=== PATIENT | male | born 1945 | race Caucasian/White ===

== ENCOUNTER → 2017-08-26 | Outpatient (CLI) | payer OTHER ==
[~2017-08-26] MED LIST: IOPAMIDOL (ISOVUE 370) 100 ML BTL IV ONE
== END ==
LOC: FIMAGING 12:15
PROVIDERS: ATTEND Family Medicine
DX: J90 Pleural effusion, not elsewhere classified (principal); J98.11 Atelectasis; R53.1 Weakness; R91.8 Other nonspecific abnormal finding of lung field; I25.10 Atherosclerotic heart disease of native coronary artery without angina pectoris
CPT/HCPCS: 71020; 71275; Q9967

== ENCOUNTER 2018-07-08 05:30 | Observation (INO) | payer OTHER ==
[2018-07-08] MEDS ORDERED: LR 1,000 ML IV ONE (06:07)
[2018-07-08] MEDS ORDERED: PIPERACILLIN/TAZO 3.375 GM/DEX 50 ML IV ONE (06:07)
--- NOTE | 2018-07-08 07:00 | PDANEPAE ---
ANE History of Present Illness persistent uti ANE Past Medical History - Cardiovascular History Hx Hypertension: No Hx Arrhythmias: No Hx Chest Pain: No Hx Coronary Artery / Peripheral Vascular Disease: No Hx CHF / Valvular Disease: No Hx Palpitations: No - Pulmonary History Hx COPD: No Hx Asthma/Reactive Airway Disease: No Hx Recent Upper Respiratory Infection: No Hx Oxygen in Use at Home: No Hx Sleep Apnea: No Sleep Apnea Screening Result - Last Documented: Negative - Neurologic History Hx Cerebrovascular Accident: No Hx Seizures: No Hx Dementia: No - Endocrine History Hx Diabetes: No Hypothyroid: No Hyperthyroid: No - Renal History Hx Renal Disorders: Yes Renal History Comment: persistant UTI - on Macrobid currently. enlarged prostate - Liver History Hx Hepatic Disorders: No - Neurological & Psychiatric Hx Hx Neurological and Psychiatric Disorders: No - Cancer History Hx Cancer: No - Congenital Disorder History Hx Congenital Disorders: No - GI History Hx Gastrointestinal Disorders: No - Other Health History Other Health History: wears glasses - Chronic Pain History Chronic Pain: No - Surgical History Prior Surgeries: tibial plateau fx repair, left - 08/2016. ankle fx, left - 20 years ago. hernia repair - 25 years ago ANE Review of Systems Review of systems is: negative Review of Systems: - Exercise capacity Exercise capacity: >=4 METS METS (RN): 6 METS ANE Patient History - Allergies Allergies/Adverse Reactions: No Known Allergies Allergy (Verified 06/16/18 10:21) - Home Medications Home Medications: RX: Aspirin [Aspirin 81mg (*)] 81 mg PO DAILY 05/04/15 [Last Taken 1 Week Ago ~ 07/01/18] RX: Allopurinol [Allopurinol 100 MG (*)] 200 mg PO DAILY 07/14/16 [Last Taken 04:19] RX: Ergocalciferol (Vitamin D2) [Vitamin D2] 2,000 unit PO DAILY 09/21/16 [Last Taken 07/07/18] RX: Multivitamins [Multivitamin (*)] 1 each PO DAILY 09/21/16 [Last Taken ] Atorvastatin Calcium [Lipitor 20 mg (*)] 20 mg PO DAILY 06/16/18 [Last Taken 04:19] Calcium Carbonate [Oyster Shell Calcium 500 mg (*)] 500 mg PO DAILY 06/16/18 [ Last Taken 07/07/18] Haswell-3 Fatty Acids [Fish Oil 1000 mg (*)] 2,000 mg PO DAILY 06/16/18 [Last Taken 07/07/18] - NPO status NPO Status: no food or drink >8 hours NPO Since - Liquids (Date): 07/07/18 NPO Since - Liquids (Time): 21:30 NPO Since - Solids (Date): 07/07/18 NPO Since - Solids (Time): 18:00 - Anes Hx Anes Hx: no prior problems - Smoking Hx Smoking Status: Never smoked - Alcohol Use Alcohol Use: Occasionally (6/wk) - Family Anes Hx Family Anes Hx: none Family Hx Anesthesia Complications: none ANE Labs/Vital Signs - Vital Signs Vital Signs: reviewed preoperatively; see RN documention for details Blood Pressure: 156/89 Heart Rate: 75 Respiratory Rate: 18 O2 Sat (%): 94 Height: 182.88 cm Weight: 86.183 kg ANE Physical Exam - Airway Neck exam: FROM Mallampati Score: Class 2 - Pulmonary Pulmonary: no respiratory distress - Cardiovascular Cardiovascular: regular rate and rhythym - ASA Status ASA Status: II ANE Anesthesia Plan Anesthesia Plan: GA w LMA
[2018-07-08] MEDS ORDERED: LIDOCAINE 2% JELLY 20 ML (UROJECT) ONE (07:09)
--- NOTE | 2018-07-08 07:18 | PDHPUP ---
History & Physical Update H&P update statement: This history and physical update is based on an assessment of the patient which was completed after admission or registration (within 24 hours), but prior to the surgery/procedure. H&P update: no change in patient's condition since H&P completed
[2018-07-08] MEDS ORDERED: BUPIVACAINE/DEXTROSE 7.5MG/ML 2 ML SPINAL AMP SP ONE (07:19)
--- NOTE | 2018-07-08 07:36 | POSTOPPROG ---
Post Op Note Date of Operation: 07/09/18 Surgeon: Patria Sen (# [id number]) Anesthesia: Spinal Pre-op Diagnosis: Chronic prostatitis & BPH Post-op Diagnosis: Chronic prostatitis & BPH Procedure: TURP Findings: BPH Inf/Abcess present in the surg proc area at time of surgery?: No EBL: 50-100 (50 cc) Specimen(s): Prostate tissue
[2018-07-08] MEDS ORDERED: HYDROCODONE/APAP 5/325 TAB PO PRN (09:22)
[2018-07-08] MEDS ORDERED: LIDOCAINE 2% JELLY 5 ML TUBE TP PRN (09:22)
[2018-07-08] MEDS ORDERED: ONDANSETRON 4 MG/2 ML VIAL IVP PRN (09:22)
[2018-07-08] MEDS ORDERED: PROMETHAZINE HCL 25 MG/ML INJ IVP PRN (09:22)
[2018-07-08] MEDS ORDERED: ALBUTEROL 3 ML DEYVIAL IH PRN (09:28)
[2018-07-08] MEDS ORDERED: fentaNYL 100 MCG/2 ML INJ IVP PRN (09:28)
[2018-07-08] MEDS ORDERED: NALOXONE HCL 0.4 MG/ML INJ IVP PRN (09:28)
--- NOTE | 2018-07-08 09:28 | POSTANESTH ---
Post Anesthetic Evaluation Cardiovascular Status: Normal, Stable Respiratory Status: Normal, Stable Level of Consciousness/Mental Status: Can Participate in Eval Pain Control: Adequate, Prn Tx Ordered Nausea/Vomiting Control: Adequate, Prn Tx Ordered Complications Possibly Related to Anesthesia: None Noted
[2018-07-08] MEDS ORDERED: D5W 1/2 NS 1,000 ML IV SCH (09:30)
--- NOTE | 2018-07-08 16:01 | ASMTCMCOM ---
CM Note CM Note Notes: Chart reviewed. 73 year old male with diagnosis of chronic prostatitis BPH and urinary obstructions s/p TURP. CM to follow for needs. Plan: TBD Date Signed: 07/08/2018 03:57 PM Electronically Signed By:Bonnie Rivera RN
[2018-07-09] MEDS ORDERED: ALLOPURINOL 100 MG TAB PO SCH (09:00)
[2018-07-09] MEDS ORDERED: PHENAZOPYRIDINE HCL 200 MG TAB PO SCH (09:00)
[2018-07-09] MEDS ORDERED: ATORVASTATIN CALCIUM 20 MG TAB PO SCH (09:00)
--- NOTE | 2018-07-09 09:11 | SOAPPROG ---
SOAP Progress Note Assessment/Plan: Assessment: POD 1 s/p TURP - stable Plan: Discharge later today after voiding trial. Subjective: No complaints. Objective: Vital Signs Temp Pulse Resp BP Pulse Ox 36.7 C 76 16 117/71 94 07/09/18 07:40 07/09/18 07:40 07/09/18 07:40 07/09/18 07:40 07/09/18 07:40 07/08/18 07/09/18 07/10/18 05:59 05:59 05:59 Intake Total 1800 620 Output Total 2535 Balance -735 620 Physical Exam - Physical Exam General Appearance: WD/WN, alert, no apparent distress Male Genitalia: other (urine pink-tinged without clots off CBI) Extremities: normal inspection Neuro/Psych: alert, normal mood/affect, oriented x 3 ICD10 Worksheet Patient Problems: Problems Problem Status Onset Cellulitis Acute Extended spectrum beta lactamase (ESBL) resistance Acute Tibia fracture Acute
--- NOTE | 2018-07-09 09:11 | GOP ---
DATE OF OPERATION: 07/08/2018 SURGEON: Patria Sen MD NEUROSURGEON: Patria Sen MD ANESTHESIA: Spinal. PREOPERATIVE DIAGNOSIS: 1. Chronic bacterial prostatitis. 2. BPH with urinary obstruction. POSTOPERATIVE DIAGNOSIS: 1. Chronic bacterial prostatitis. 2. BPH with urinary obstruction. PROCEDURE PERFORMED: Transurethral prostate resection and vaporization. FINDINGS: Circumferential BPH. No evidence of acute active prostatitis appreciated. Prostate was noted to be very vascular. ESTIMATED BLOOD LOSS: Less than 100 cc. INDICATIONS: This gentleman has had a several-year history of recurrent bacterial urinary tract infections thought to be originating from the prostate. Due to the need for multiple rounds of antibiotics over the last several years , it was recommended that the patient undergo intraoperative prostate resection. The indications for the procedures, as well as potential risks and complications were discussed with the patient preoperatively. He appeared to understand, his questions were answered, and he wished to proceed. Written informed surgical consent was thereafter obtained. DESCRIPTION OF PROCEDURE: The patient was brought to the operating room and administered spinal anesthesia. He was carefully placed in the dorsal lithotomy position on the cystoscopic table. The genital area was sterilely prepped with Betadine scrub and paint, then draped in the usual sterile fashion. Cystoscopy was performed with a 30 degree lens through a 22-Greek sheath initially. Anterior urethra revealed no abnormalities. Posterior urethra revealed moderate circumferential BPH and secondary obstruction. He did have an intravesical median lobe that extended towards the trigone as well. Bladder was moderately trabeculated but otherwise unremarkable. Ureteral orifices were normal in regards to shape and position along the trigone. The 26-Greek resectoscopic sheath with a visual obturator and a 30 degree lens were then inserted. The [employer] resectoscope with a standard resecting loop was then inserted. Using normal saline continuous flow, I then began to resect the median lobe of the prostate starting at the level of the bladder neck. Upon starting my resection, I encountered technical difficulties with the equipment. I was able to swipe pieces of prostate tissue without difficulty, but was unable to fully separate the resected pieces from the underlying adenoma. This resulted in prostate chips that were still attached to the adenoma along the distal aspect of the chips. I attempted to correct the problem by switching to a different loop, but this was unsuccessful. I also switched to a different resectoscope but also still had the same issues. This particular problem made it almost impossible to perform transurethral resection with the loop instrument. Therefore, I switched to a button electrode. I used the button to essentially vaporize the prostate circumferentially as deeply as possible. It should also be noted that upon making my initial swipes through the prostate with the loop, there was a reasonable amount of bleeding from the underlying adenoma which hampered visualization of the prostate throughout the remainder of the case. Nonetheless, I vaporized the prostate with the button as well as I could in a circumferential fashion from the bladder neck back towards the verumontanum. Care was taken to ensure that no vaporization or resection had taken place proximal to the bladder neck or distal to the verumontanum. However, due to some of the poor visibility, I did end up vaporizing into the right trigone and this also involved the tissue surrounding the right ureteral orifice. However, the right ureteral orifice did appear to be visually patent throughout the surgery and at its conclusion. Therefore, I did not feel that stenting was necessary. At the conclusion of the operation, the prostatic fossa was certainly much more patent than preoperatively. The median lobe was no longer present, and I was able to vaporize a reasonable amount of the lateral lobe tissue. No vaporization nor resection had taken place distal to the verumontanum. I did remove whatever chips that I had initially resected from the bladder using an [employer] evacuator, and these were sent to Pathology. The instruments were removed, and a 24-Greek 3-way Martinez catheter inserted with the use of a catheter guide. 40 cc of sterile water was placed in the balloon. The catheter irrigated manually and the return was dark pink to light red. I began continuous irrigation with normal saline, and also used a 4 x 4 gauze for traction purposes. The urine was much clearer after this. The catheter was connected to bag drainage. The patient was then transferred to his bed and taken to the recovery room. He tolerated the procedure well overall. COMPLICATIONS: Inadvertent partial vaporization of the right trigone, including the mucosa surrounding the right ureteral orifice. However, right ureteral orifice appeared patent at the conclusion of the procedure. Therefore , stenting was not deemed to be necessary. DISPOSITION: He was transferred to the recovery room in stable condition and will be admitted for postoperative care including continuous irrigation. /[id number]/MODL MTDD
[2018-07-09 12:19] VITALS: BP 130/87
--- NOTE | 2018-07-09 13:39 | ASMTCMCOM ---
CM Note CM Note Notes: Chart reviewed. Patient has been medically cleared for discharge to home s/p TURP No current needs identified. CM available should needs arise. Plan: Likely home independently. Date Signed: 07/09/2018 01:18 PM Electronically Signed By:Bonnie Rivera RN
--- NOTE | 2018-07-14 14:07 | GDS ---
ADMISSION DIAGNOSES: Chronic bacterial prostatitis and BPH with urinary obstruction. DISCHARGE DIAGNOSES: Chronic bacterial prostatitis and BPH with urinary obstruction. PROCEDURE: Transurethral prostate resection and vaporization on 07/08/2018. HOSPITAL COURSE: Refer to the operative report for details regarding the procedure. Postoperatively , the patient did well. His urine was relatively clear off continuous irrigation on postoperative da y 1. Martinez was removed and he was voiding well by the afternoon of postoperative day 1. His vital s igns were stable, and he was otherwise afebrile. His physical exam was unremarkable. Postoperative vital signs were stable. The patient was ready for discharge on postoperative day 1. He is being di scharged on his regular medications. Activity restriction instructions were provided. He will rose nue regular diet. He has been instructed to return to the office in approximately 1 month. /[id number]/MODL
== END 2018-07-09 15:26 | disposition home or self-care (01) ==
LOC: F1N 05:30
PROVIDERS: ADMIT Specialist; ATTEND Specialist
PROC: 0VT08ZZ Resection of Prostate, Via Natural or Artificial Opening Endoscopic (ICD-10-PCS; principal; 2018-07-08 07:15)
DX: N40.1 Benign prostatic hyperplasia with lower urinary tract symptoms (principal); R35.1 Nocturia; R35.0 Frequency of micturition; R39.15 Urgency of urination; N39.498 Other specified urinary incontinence; N41.1 Chronic prostatitis; M10.9 Gout, unspecified
CPT/HCPCS: 52601; 88305; G0378; J2543

== ENCOUNTER → 2018-08-04 | Outpatient (CLI) | payer OTHER | LOC: FIMAGING 08:39 | PROVIDERS: ATTEND Specialist | DX: Z98.890 Other specified postprocedural states (principal) ==

== ENCOUNTER → 2019-02-07 | Outpatient (CLI) | payer OTHER | LOC: FIMAGING 11:10 | PROVIDERS: ATTEND Family Medicine | DX: M19.041 Primary osteoarthritis, right hand (principal) ==